=== PATIENT | female | born 1960 | race African-American/Black ===

== ENCOUNTER 2016-04-22 17:20 | Emergency (ER) | payer OTHER ==
[~2016-04-22] VITALS: Ht 157.5 cm; Wt 71.2 kg
[~2016-04-22 17:20] MED LIST: LOPRESSOR50 MG PO; ZESTORETIC 20-1 EAC1 NG; ZOFRAN ODT8 MG PO
[2016-04-22 18:46] LABS: HEMATOCRIT 41.7 % (36.0-46.0); MCH 29.1 PG (29.0-34.0); MCHC 33.3 G/DL (30.0-36.0); MCV 87.4 FL (83-99); PLATELET COUNT 216 K/uL (156-360); RBC DIS.WIDTH-CV 12.9 % (11.8-14.6); RBC DIS.WIDTH-SD 40.5 % (39-53); RED BLOOD COUNT 4.77 M/uL (3.80-5.20); WHITE BLOOD COUNT 8.7 K/uL (4.1-10.2)
[2016-04-22 18:56] LABS: CHLORIDE 103 mEq/L (99-109); POTASSIUM 3.7 mEq/L (3.7-5.4); SODIUM 140 mEq/L (136-147)
[2016-04-22 18:58] LABS: GLUCOSE 101 mg/dL (70-99)
[2016-04-22 19:00] LABS: ANION GAP 11 MEQ/L (2-14)
[2016-04-22 19:02] LABS: GFR ESTIMATE (CALCULATED) > 59 mL/min/
[2016-04-22 19:03] LABS: UREA NITROGEN (BUN) 16 mg/dL (9-23)
[2016-04-22 19:08] LABS: TROP-I INTERPRETATION NEGATIVE; TROPONIN-I < 0.01 ng/mL (0.0-0.30)
[2016-04-23 02:17] LABS: TROP-I INTERPRETATION NEGATIVE; TROPONIN-I < 0.01 ng/mL (0.0-0.30)
[2016-04-23] MEDS ORDERED: MUCUS ER600 MG PO (10:30)
[2016-04-23] MEDS ORDERED: TESSALON PERLE100 MG PO (10:30)
[2016-04-23] MEDS ORDERED: IBUPROFEN800 MG PO (10:30)
[2016-04-23 11:56] VITALS: BP 165/84
== END 2016-04-23 11:58 | disposition home or self-care (01) ==
LOC: EME 17:20
PROVIDERS: Personal Emergency Response Attendant
DX: R06.02 Shortness of breath (principal); R51 Headache; H92.02 Otalgia, left ear; J06.9 Acute upper respiratory infection, unspecified; D86.9 Sarcoidosis, unspecified; I10 Essential (primary) hypertension
CPT/HCPCS: 71020; 80048; 84484; 85027; 93005; 99281; 99284

== ENCOUNTER 2016-07-29 17:41 | Observation (INO) | payer OTHER ==
[~2016-07-29] VITALS: Ht 157.5 cm; Wt 71.2 kg
[~2016-07-29 17:41] MED LIST changes: +IBUPROFEN800 MG PO; +MUCUS ER600 MG PO; +TESSALON PERLE100 MG PO
[2016-07-29 18:56] LABS: EOSINOPHIL (%) 2.8 % (0-5); EOSINOPHIL COUNT 0.2 K/uL (0-0.3); IMMATURE GRANULOCYTE (%) 0.2 % (0.0-0.7); INSTRUMENT ABS NEUTROPHIL CT 3.2 K/uL; LYMPHOCYTE COUNT 2.2 K/uL (1.0-2.8); MCH 28.7 PG (29.0-34.0); MCHC 32.1 G/DL (30.0-36.0); MCV 89.2 FL (83-99); MEAN PLAT.VOLUME 12.3 uM^3 (9.5-12.4); MONOCYTE (%) 7.2 % (3-12); MONOCYTE COUNT 0.4 K/uL (0-0.8); NEUTROPHIL (%) 52.8 % (45-76); NEUTROPHIL COUNT 3.2 K/uL (1.8-6.4); PLATELET COUNT 258 K/uL (156-360); RBC DIS.WIDTH-CV 12.9 % (11.8-14.6); RBC DIS.WIDTH-SD 42.6 % (39-53); RED BLOOD COUNT 4.71 M/uL (3.80-5.20)
[2016-07-29 19:07] LABS: INTER. NORMALIZED RATIO 1.1; PROTHROMBIN TIME 10.9 (9.2-11.2); PTT 28.9 (25-32)
[2016-07-29 19:29] LABS: CHLORIDE 103 mEq/L (99-109); POTASSIUM 4.4 mEq/L (3.7-5.4); SODIUM 140 mEq/L (136-147)
[2016-07-29 19:31] LABS: GLUCOSE 87 mg/dL (70-99)
[2016-07-29 19:32] LABS: ANION GAP 9 MEQ/L (2-14)
[2016-07-29 19:35] LABS: GFR ESTIMATE (CALCULATED) > 59 mL/min/
[2016-07-29 19:36] LABS: UREA NITROGEN (BUN) 14 mg/dL (9-23)
[2016-07-29 19:41] LABS: TROP-I INTERPRETATION NEGATIVE; TROPONIN-I < 0.01 ng/mL (0.0-0.30)
[2016-07-29] MEDS ORDERED: DAILY VALUE1 EACH PO (21:18)
[2016-07-29 22:28] LABS: SAMPLE HEMOLYSIS CHECK 0; SAMPLE ICTERIC CHECK 0; SAMPLE LIPEMIA CHECK 0
[2016-07-29 22:34] LABS: HDL CHOLESTEROL 60 MG/DL (Desirable>=50); LDL CHOLESTEROL 102 mg/dL (Desirable<100); NON-HDL CHOLESTEROL 118 mg/dL (Desirable<160); TOTAL CHOLESTEROL 178 mg/dL (Desirable<200); TRIGLYCERIDES 82 MG/DL (Normal: <150)
[2016-07-29 22:52] VITALS: BP 175/87
[2016-07-30 04:30] VITALS: BP 159/77
[2016-07-30 07:28] VITALS: BP 171/77
[2016-07-30 07:44] LABS: Estimated Average Glucose 94 mg/dL (70-123); HEMOGLOBIN A1c (GLYCOHEMOGLOB) 4.9 % HGB (Below 5.7)
[2016-07-30 09:00] VITALS: BP 158/78
[2016-07-30 10:56] VITALS: BP 162/68
[2016-07-30] MEDS ORDERED: ASPIR-LOW81 MG PO (11:17)
[2016-07-30] MEDS ORDERED: NORVASC2.5 MG PO (11:18)
[2016-07-30 12:27] VITALS: BP 163/87
== END 2016-07-30 13:59 | disposition home or self-care (01) ==
LOC: EME 17:41 → EDOF 21:21 → 5WEST 21:21
PROVIDERS: Emergency Medicine; Hospitalist
DX: G45.9 Transient cerebral ischemic attack, unspecified (principal); I10 Essential (primary) hypertension
CPT/HCPCS: 70450; 70551; 71010; 80048; 80061; 83036; 84484; 85025; 85610; 85730; 93005; 93880; 99281; 99285; G0378; J0360

== ENCOUNTER 2017-04-01 12:47 | Observation (INO) | payer OTHER ==
[~2017-04-01] VITALS: Ht 157.5 cm; Wt 71.1 kg
[~2017-04-01 12:47] MED LIST changes: +ASPIR-LOW81 MG PO; +DAILY VALUE1 EACH PO; +NORVASC2.5 MG PO
[2017-04-01 14:01] LABS: HEMATOCRIT 41.8 % (36.0-46.0); MCH 29.1 PG (29.0-34.0); MCHC 32.5 G/DL (30.0-36.0); MCV 89.3 FL (83-99); RBC DIS.WIDTH-CV 13.2 % (11.8-14.6); RBC DIS.WIDTH-SD 43.2 % (39-53); RED BLOOD COUNT 4.68 M/uL (3.80-5.20); WHITE BLOOD COUNT 6.6 K/uL (4.1-10.2)
[2017-04-01 14:07] LABS: INTER. NORMALIZED RATIO 1.1; PROTHROMBIN TIME 12.3 SEC (10.2-12.9)
[2017-04-01 14:09] LABS: PTT 32.4 SEC (25-37)
[2017-04-01 14:12] LABS: CHLORIDE 105 mEq/L (99-109); POTASSIUM 3.9 mEq/L (3.7-5.4); SODIUM 141 mEq/L (136-147)
[2017-04-01 14:14] LABS: GLUCOSE 91 mg/dL (70-99)
[2017-04-01 14:15] LABS: ANION GAP 9 MEQ/L (2-14)
[2017-04-01 14:17] LABS: GFR ESTIMATE (CALCULATED) > 59 mL/min/
[2017-04-01 14:18] LABS: UREA NITROGEN (BUN) 12 mg/dL (9-23)
[2017-04-01 14:22] LABS: TROP-I INTERPRETATION NEGATIVE; TROPONIN-I < 0.01 ng/mL (0.0-0.30)
[2017-04-01 14:52] LABS: MEAN PLAT.VOLUME 11.7 uM^3 (9.5-12.4); PLAT.SUFFICIENCY ADEQUATE; PLATELET COUNT 268 K/uL (156-360)
[2017-04-01] MEDS ORDERED: NORVASC2.5 MG PO (15:13)
[2017-04-01] MEDS ORDERED: ASPIR-LOW81 MG PO (15:14)
[2017-04-01 19:59] VITALS: BP 153/77
[2017-04-01 20:41] LABS: TROP-I INTERPRETATION NEGATIVE; TROPONIN-I < 0.01 ng/mL (0.0-0.30)
[2017-04-02 00:15] VITALS: BP 136/80
[2017-04-02 02:22] LABS: TROP-I INTERPRETATION NEGATIVE; TROPONIN-I < 0.01 ng/mL (0.0-0.30)
[2017-04-02 03:42] VITALS: BP 125/66
[2017-04-02] MEDS ORDERED: CLONIDINE HCL0.1 MG PO (10:22)
[2017-04-02] MEDS ORDERED: ATORVASTATIN CA20 MG PO (10:26)
== END 2017-04-02 11:30 | disposition home or self-care (01) ==
LOC: EME 12:47 → EDOF 15:26 → 5WEST 15:26 → EDOF 15:26 → ENRESERV 15:48 → 5WEST 19:51
PROVIDERS: Emergency Medicine; Internal Medicine
DX: R07.9 Chest pain, unspecified (principal); I16.0 Hypertensive urgency; I10 Essential (primary) hypertension; D86.9 Sarcoidosis, unspecified; Z86.73 Personal history of transient ischemic attack (TIA), and cerebral infarction without residual deficits; H40.9 Unspecified glaucoma; Z82.49 Family history of ischemic heart disease and other diseases of the circulatory system
CPT/HCPCS: 71020; 80048; 84484; 85027; 85610; 85730; 93005; 93306; 99281; 99284; G0378; J0360; J1650